=== PATIENT | male | born 1970 | race Caucasian/White ===

== ENCOUNTER 2017-07-26 17:53 | Emergency (ER) | payer BC ==
[2017-07-26 20:24] LABS: Absolute Lymphocytes (CBC) 0.9 K/uL (0.7-4.9); Absolute Monocytes 0.4 K/uL (0.1-1.3); Absolute Neutrophil 7.6 K/uL (1.8-8.0); Basophils % 0.2 % (0-1.3); Eosinophils % 0.4 % (0-4.4); Hematocrit 43.9 % (39.6-49.0); Lymphocytes % 9.7 % (15.3-44.8); MCH 31.1 pg (27.0-35.0); MCV 92.5 fL (80-100); MPV 8.2 fL (7.6-11.3); Monocytes % 3.9 % (3.3-12.3); RBC Red Blood Cell Count 4.75 M/uL (4.33-5.43)
[2017-07-26] MEDS ORDERED: NA CHLORIDE 0.9% 1,000 ML ONE (20:37)
[2017-07-26 20:42] LABS: Albumin 4.7 g/dL (3.2-5.5); Bilirubin Direct 0.1 mg/dL (0-0.2); Bilirubin Total 0.6 mg/dL (0.3-1.2); Magnesium 1.9 mg/dL (1.8-2.5); Protein, Total 7.3 g/dL (6.0-8.3)
[2017-07-26 20:46] LABS: Urine Blood NEGATIVE (NEG); Urine Glucose NEGATIVE (NEG); Urine Protein NEGATIVE (NEG)
--- NOTE | 2017-07-26 21:02 | RAD REPORT ---
EXAM DESCRIPTION: Lauren Single View07/26/2017 8:35 pm CLINICAL HISTORY: Chest pain COMPARISON: none FINDINGS: The lungs appear clear of acute infiltrate. The heart is normal size IMPRESSION: No acute abnormalities displayed
[2017-07-26 21:15] LABS: Blood Morphology Comment NOT SEEN (NOT SEEN); Platelet Estimate ADEQ; Urine White Blood Cell Casts OK
--- NOTE | 2017-07-26 21:24 | EDPHYS ---
Physician Documentation [facility] Name: Kaiden Bishop Age: 47 yrs Sex: Male : 1970 Arrival Date: 07/26/2017 Time: 17:57 Bed 18 Private MD: Kristen Aldrich H ED Physician Adams Juarez HPI: 07/26 21:19 This 47 yrs old Male presents to ER via Ambulatory with complaints of Near gs Syncope. 21:19 The patient has experienced near-syncope, almost passed out, felt generally weak. gs Onset: The symptoms/episode began/occurred acutely, today. Duration: The patient has had multiple episodes, that last 5 minute(s). Context: the episode(s) was witnessed, by a significant other, occurred at home, occurred while the patient was sitting, Just prior to the episode the patient experienced diaphoresis, dizziness, palpitations. Associated injury: The patient did not suffer any apparent associated injury. Associated signs and symptoms: Pertinent negatives: abdominal pain, chest pain, confusion. The patient has experienced similar episodes in the past, a few times. The patient has not recently seen a physician. Historical: - Allergies: 18:06 No Known Allergies; hj - Home Meds: 18:06 None [Active]; hj - PMHx: 18:06 None; hj - PSHx: 18:06 None; hj - Immunization history:: Adult Immunizations unknown. - Social history:: The patient lives at home, Smoking status: Patient/guardian denies using tobacco. ROS: 21:19 Cardiovascular: Negative for chest pain. gs 21:19 Respiratory: Negative for orthopnea, pleurisy, shortness of breath. 21:19 All other systems are negative. Exam: 21:19 Head/Face: Normocephalic, atraumatic. Eyes: Pupils equal round and reactive to light, gs extra-ocular motions intact. Lids and lashes normal. Conjunctiva and sclera are non-icteric and not injected. Cornea within normal limits. Periorbital areas with no swelling, redness, or edema. ENT: Nares patent. No nasal discharge, no septal abnormalities noted. Tympanic membranes are normal and external auditory canals are clear. Oropharynx with no redness, swelling, or masses, exudates, or evidence of obstruction, uvula midline. Mucous membranes moist. Neck: Trachea midline, no thyromegaly or masses palpated, and no cervical lymphadenopathy. Supple, full range of motion without nuchal rigidity, or vertebral point tenderness. No Meningismus. Chest/axilla: Normal chest wall appearance and motion. Nontender with no deformity. No lesions are appreciated. Cardiovascular: Regular rate and rhythm with a normal S1 and S2. No gallops, murmurs, or rubs. Normal PMI, no JVD. No pulse deficits. Respiratory: Lungs have equal breath sounds bilaterally, clear to auscultation and percussion. No rales, rhonchi or wheezes noted. No increased work of breathing, no retractions or nasal flaring. Abdomen/GI: Soft, non-tender, with normal bowel sounds. No distension or tympany. No guarding or rebound. No evidence of tenderness throughout. Back: No spinal tenderness. No costovertebral tenderness. Full range of motion. Skin: Warm, dry with normal turgor. Normal color with no rashes, no lesions, and no evidence of cellulitis. MS/ Extremity: Pulses equal, no cyanosis. Neurovascular intact. Full, normal range of motion. Neuro: Awake and alert, GCS 15, oriented to person, place, time, and situation. Cranial nerves II-XII grossly intact. Motor strength 5/5 in all extremities. Sensory grossly intact. Cerebellar exam normal. Normal gait. 21:19 Constitutional: The patient appears in no acute distress, alert, awake. 21:19 ECG was reviewed by the Attending Physician. Vital Signs: 18:06 BP 139 / 93; Pulse 75; Resp 18; Temp 98.8(TE); Pulse Ox 99% on R/A; Weight 65.77 kg; hj Height 6 ft. 2 in. (187.96 cm); Pain 0/10; 18:06 Body Mass Index 18.62 (65.77 kg, 187.96 cm) hj MDM: 19:24 Patient medically screened. 21:19 Differential Diagnosis: cardiac arrhythmia, idiopathic syncope, vasovagal episode. Data gs reviewed: vital signs, nurses notes. Response to treatment: the patient's symptoms have markedly improved after treatment, and as a result, I will discharge patient. 21:23 Counseling: I had a detailed discussion with the patient and/or guardian regarding: the gs presence of at least one elevated blood pressure reading (>120/80) during this emergency department visit. Special discussion: I have referred the patient to see his PCP for further evaluation of high blood pressure. 07/26 19:27 Order name: Basic Metabolic Panel; Complete Time: 21: 07/26 19:27 Order name: CBC with Diff; Complete Time: 21: gs 07/26 19:27 Order name: LFT's; Complete Time: 21: 07/26 19:27 Order name: Magnesium; Complete Time: 21: 07/26 20:30 Order name: CBC Smear Scan; Complete Time: 21:23 EDMS 07/26 20:33 Order name: Urine Dipstick--Ancillary (enter results); Complete Time: 21: rg2 07/26 19:27 Order name: XRAY Chest (1 view); Complete Time: 21: 07/26 19:27 Order name: EKG; Complete Time: 19:27 07/26 19:27 Order name: Cardiac monitoring; Complete Time: 20:18 07/26 19:27 Order name: EKG - Nurse/Tech; Complete Time: 20:18 07/26 19:27 Order name: IV Saline Lock; Complete Time: 20:18 07/26 19:27 Order name: Labs collected and sent; Complete Time: 20:18 07/26 19:27 Order name: O2 Per Protocol; Complete Time: 20:18 07/26 19:27 Order name: O2 Sat Monitoring; Complete Time: 20:18 07/26 19:27 Order name: Urine Dipstick-Ancillary (obtain specimen); Complete Time: 20:18 gs EC:19 Rate is 64 beats/min. Rhythm is regular. DE interval is normal. QRS interval is normal. gs QT interval is normal. T waves are Normal. No ST changes noted. Clinical impression: Abnormal EKG without significant change. Interpreted by me. Administered Medications: 20:19 Drug: NS 0.9% 1000 ml Route: IV; Rate: 1 bolus; Site: right antecubital; 22:14 Follow up: Response: No adverse reaction; IV Status: Completed infusion Disposition: 07/26/17 21:23 Discharged to Home. Impression: Syncope and collapse. - Condition is Stable. - Discharge Instructions: Near-Syncope, Syncope, Managing Your High Blood Pressure. - Medication Reconciliation Form, Thank You Letter, Antibiotic Education, Prescription Opioid Use form. - Follow up: Kristen Aldrich DO; When: 1 - 2 days; Reason: Re-evaluation by your physician. Follow up: Akin Alvarado MD; When: 2 - 3 days; Reason: Re-evaluation by your physician. Signatures: Dispatcher [employer] Vincent Mckeon RN RN hj Habalo, Winsy Adams Juarez MD MD
--- NOTE | 2017-07-26 21:24 | ER ---
Nurse's Notes [facility] Name: Kaiden Bishop Age: 47 yrs Sex: Male : 1970 Arrival Date: 07/26/2017 Time: 17:57 Bed 18 Private MD: Kristen Aldrich H Diagnosis: Syncope and collapse Presentation: 07/26 18:04 Presenting complaint: Patient states: earlier i had pulled a muscle on my neck area; so hj i have shoulder pain; took 2 motrin; i laid down and felt better, i got up and i feel like about to passed out; reports sweats; BG- 103; denies nausea/ vomiting;. Transition of care: patient was not received from another setting of care. Onset of symptoms was July 26, 2017. Care prior to arrival: None. 18:04 Method Of Arrival: Ambulatory 18:04 Acuity: TREVOR 3 hj Triage Assessment: 18:06 General: Appears in no apparent distress. uncomfortable, Behavior is calm, cooperative, hj appropriate for age. Pain: Denies pain. Historical: - Allergies: 18:06 No Known Allergies; hj - Home Meds: 18:06 None [Active]; hj - PMHx: 18:06 None; hj - PSHx: 18:06 None; hj - Immunization history:: Adult Immunizations unknown. - Social history:: The patient lives at home, Smoking status: Patient/guardian denies using tobacco. Screenin:15 Abuse screen: Denies threats or abuse. Denies injuries from another. Nutritional wh screening: No deficits noted. Tuberculosis screening: No symptoms or risk factors identified. Fall Risk None identified. Assessment: 20:04 General: Appears in no apparent distress. comfortable, Behavior is calm, cooperative, wh appropriate for age. Pain: Denies pain. Neuro: Level of Consciousness is awake, alert, obeys commands, Oriented to person, place, time, situation, Reports dizziness, and near syncopal episode that happened 3x in the past few days. Cardiovascular: Denies chest pain, Heart tones S1 S2 Capillary refill < 3 seconds. Respiratory: Airway is patent Respiratory effort is even, unlabored, Respiratory pattern is regular, symmetrical, Breath sounds are clear bilaterally. GI: Abdomen is flat, non-distended, Abd is soft and non tender X 4 quads. : No signs and/or symptoms were reported regarding the genitourinary system. EENT: No signs and/or symptoms were reported regarding the EENT system. Derm: Skin is intact, is healthy with good turgor, Skin is pink, warm \T\ dry. normal. Musculoskeletal: Range of motion: intact in all extremities. 21:10 Reassessment: Patient appears in no apparent distress at this time. Patient and/or wh family updated on plan of care and expected duration. Pain level reassessed. Patient is alert, oriented x 3, equal unlabored respirations, skin warm/dry/pink. Patient denies pain at this time. 22:12 Reassessment: Patient appears in no apparent distress at this time. Patient and/or wh family updated on plan of care and expected duration. Pain level reassessed. Patient is alert, oriented x 3, equal unlabored respirations, skin warm/dry/pink. Patient denies pain at this time. Vital Signs: 18:06 BP 139 / 93; Pulse 75; Resp 18; Temp 98.8(TE); Pulse Ox 99% on R/A; Weight 65.77 kg; hj Height 6 ft. 2 in. (187.96 cm); Pain 0/10; 18:06 Body Mass Index 18.62 (65.77 kg, 187.96 cm) ED Course: 17:57 Patient arrived in ED. rg4 17:57 Kristen Aldrich DO is Private Physician. rg4 18:06 Triage completed. 18:06 Arm band placed on right wrist. 19:08 Marcelina Myers is Primary Nurse. 19:15 Adams Juarez MD is Attending Physician. 20:19 Inserted saline lock: 20 gauge in right antecubital area, using aseptic technique. Blood collected. 20:29 X-ray completed. Portable x-ray completed in exam room. Patient tolerated procedure kc2 well. 20:29 XRAY Chest (1 view) In Process Unspecified. EDMS 21:14 Patient has correct armband on for positive identification. Bed in low position. Call light in reach. Side rails up X 1. cardiac monitor technician on. Pulse ox on. NIBP on. 21:22 Kristen Aldrich DO is Referral Physician. 21:23 Akin Alvarado MD is Referral Physician. gs 22:12 No provider procedures requiring assistance completed. IV discontinued, intact, bleeding controlled, No redness/swelling at site. Administered Medications: 20:19 Drug: NS 0.9% 1000 ml Route: IV; Rate: 1 bolus; Site: right antecubital; 22:14 Follow up: Response: No adverse reaction; IV Status: Completed infusion Outcome: 21:23 Discharge ordered by MD. 22:13 Discharged to home ambulatory, with family. 22:13 Condition: good 22:13 Discharge instructions given to patient, family, Instructed on discharge instructions, follow up and referral plans. POC Demonstrated understanding of instructions, follow-up care. 22:17 Patient left the ED. Signatures: Dispatcher [employer] EDMS Vincent Joseph RN RN hj Carr, Kelsie kc2 Chaparrita Durant4 Marcelina Myers Adams Juarez MD MD Corrections: (The following items were deleted from the chart) 18:08 18:06 Pulse 75bpm; Resp 18bpm; Pulse Ox 99% RA; Temp 98.8F Temporal; 65.77 kg; Height 6 hj ft. 2 in.; BMI: 18.6; Pain 0/10; hj
--- NOTE | 2017-07-27 05:07 | EKG ---
Test Date: 2017-07-26 Test Time: 20:04:20 Digitizer Operator: DANIKA MEASUREMENT RESULTS: Intervals: Rate: 64 RI: 122 QRSD: 92 QT: 370 QTc: 381 [place]: P: 70 RI: 122 QRS: 87 T: 63 INTERPRETIVE STATEMENTS: Normal sinus rhythm Minimal voltage criteria for LVH, may be normal variant Borderline ECG No previous ECG available for comparison Electronically Signed On 07-27-17 05:06:38 CDT by Akin Alvarado
--- NOTE | 2017-07-27 16:29 | EKG ---
Test Date: 2017-07-26 Test Time: 20:04:50 Application Security Engineer: DANIKA MEASUREMENT RESULTS: Intervals: Rate: 64 MT: 126 QRSD: 92 QT: 364 QTc: 375 [place]: P: 69 MT: 126 QRS: 88 T: 66 INTERPRETIVE STATEMENTS: Normal sinus rhythm Minimal voltage criteria for LVH, may be normal variant Borderline ECG Compared to ECG 07/26/2017 20:04:20 No significant changes Electronically Signed On 07-27-17 16:25:17 CDT by Akshat Castaneda
== END 2017-07-26 22:17 | disposition home or self-care (01) ==
LOC: ER 17:53
DX: R55 Syncope and collapse (principal)
CPT/HCPCS: 36415; 71045; 80048; 80076; 81003; 83735; 85025; 93005; 96360; 96361; 99284; J7030

== ENCOUNTER 2023-10-26 11:45 | Emergency (ER) | payer OTHER, SELFPAY ==
--- OUTSIDE RECORDS SUMMARY | 2023-10-26 12:22 | XMS REPORT | Continuity of Care Document ---
Author Name Unknown Address [address] [place] [address] [address] [place], [place] [id number] [place] [address] thconnect Address [address] [facility] [address] [place] [address] Care Team Providers Care Emergency Room Physician Assistant Name Role Phone PCP, PATIENT DOES NOT HAVE A Primary Care Physic WERNER Noland Attending Clinician Unavailable Payers Payer Name Policy Type Policy Number Effective Date Expirati on Date Source [facility] [id number] 2014 00:00:00 Allergies, Adverse Reactions, Alerts Allergy Name Allergy Type Status Severity Reaction(s) Onset Date Inactive Date Treating Clinician Comments Source NO KNOWN ALLERGIE S Drug Class Active [facility] Encounters Start Date/Time End Date/Time Encounter Type Admission Type Attending Clinicians Care Facility Care Department Encounter ID Source 2019-06-17 12:40:00 2019-06-17 23:59:00 Outpatient WERNER DUNHAM [facility] [id number] [facility]
--- NOTE | 2023-10-26 13:26 | RAD REPORT ---
EXAM DESCRIPTION: CT - C Spine Wo Con - 10/26/2023 12:22 pm CLINICAL HISTORY: Pain COMPARISON: None. TECHNIQUE: Axial noncontrast thin cut CT images of the cervical spine were obtained with sagittal an d coronal reconstruction images generated and reviewed. All CT scans are performed using dose optimization technique as appropriate and may include automated exposure control or mA/KV adjustment according to patient size. FINDINGS: Cervical body height and alignment are normal. Straightening of normal cervical lordosis w hich may be positional or secondary to muscle spasm. Mild degenerative changes most notably at C6-7, contributing to mild neural foraminal narrowing on the left. No disk space narrowing. No fracture or acute bony abnormality. No paraspinal mass or hematoma. IMPRESSION: No acute findings. Mild degenerative changes as above.
--- NOTE | 2023-10-26 14:31 | EDPHYS ---
Physician Documentation [facility] Name: Kaiden Bishop Age: 53 yrs Sex: Male : 1970 Arrival Date: 10/26/2023 Time: 11:45 Bed DX1 Private MD: ED Physician Darci Lai HPI: 10/25 16:27 This 53 yrs old Male presents to ER via Ambulatory with complaints of Head Injury-Adult.ms3 16:27 53-year-old male with no past medical history presents to the emergency department for ms3 neck pain. Patient states last week he was walking and hit a pole with his head. Patient notes he did have a hard hat on and did not have loss of consciousness. Patient states today while in a meeting he was pushing on his spine and felt a tender area in the midline spine that caused immense pain. Patient states the pain has subsided since that time.. Historical: - Allergies: 11:52 No Known Allergies; mb9 - Home Meds: 11:52 None [Active]; mb9 - PMHx: 11:52 None; mb9 - PSHx: 11:52 None; mb9 - Immunization history:: Adult Immunizations up to date. - Infectious Disease History:: Denies. - Social history:: Smoking status: Patient denies any tobacco usage or history of. ROS: 16:27 Constitutional: Negative for fever, and chills. Neck: Negative for injury, pain, and ms3 swelling, Cardiovascular: Negative for chest pain, and palpitations. Respiratory: Negative for shortness of breath, cough, wheezing, and pleuritic chest pain, Abdomen/GI: Negative for abdominal pain, nausea, vomiting, diarrhea, and constipation, 16:27 MS/extremity: Positive for Neck pain, Exam: 16:27 Constitutional: This is a well developed, well nourished patient who is awake, alert, ms3 and in no acute distress. Head/Face: Normocephalic, atraumatic. Neck: Trachea midline, no cervical lymphadenopathy. Supple, full range of motion without nuchal rigidity, or vertebral point tenderness. No Meningismus. Chest/axilla: Normal chest wall appearance and motion. Nontender with no deformity. Cardiovascular: Regular rate and rhythm with a normal S1 and S2. No gallops, murmurs, or rubs. Normal PMI, no JVD. No pulse deficits. Respiratory: Lungs have equal breath sounds bilaterally, clear to auscultation and percussion. No rales, rhonchi or wheezes noted. No increased work of breathing, no retractions or nasal flaring. Abdomen/GI: Soft, non-tender, with normal bowel sounds. No distension or tympany. No guarding or rebound. No evidence of tenderness throughout. Skin: Warm, dry with normal turgor. Normal color with no rashes, no lesions, and no evidence of cellulitis. Vital Signs: 11:51 BP 154 / 99; Pulse 63; Resp 18; Temp 98.2; Pulse Ox 100% on R/A; Weight 72.57 kg; mb9 Height 6 ft. 2 in. ; Pain 0/10; 14:40 BP 147 / 82; Pulse 66; Resp 18; Pulse Ox 97% ; as6 11:51 Body Mass Index 20.54 (72.57 kg, 187.96 cm) mb9 11:51 Pain Scale: Adult mb9 [place] Coma Score: 11:51 Eye Response: spontaneous(4). Motor Response: obeys commands(6). Verbal Response: mb9 oriented(5). Total: 15. MDM: 12:09 Patient medically screened. ms3 16:27 Differential diagnosis: Contusion of Muscle spasm versus vertebral. Data reviewed: ms3 vital signs, nurses notes, and as a result, I will discharge patient. Counseling: I had a detailed discussion with the patient and/or guardian regarding the historical points, exam findings, and any diagnostic results supporting the discharge/admit diagnosis, radiology results, the need for outpatient follow up, to return to the emergency department if symptoms worsen or persist or if there are any questions or concerns that arise at home. Special discussion: I discussed with the patient/guardian in detail that at this point there is no indication for admission to the hospital. It is understood, however, that if the symptoms persist or worsen the patient needs to return immediately for re-evaluation. ED course: Discussed negative CT C-spine with patient. Patient to follow-up with her primary care physician in 2 to 3 days. Patient understands and agrees with plan. All questions were answered. Return precautions discussed include worsening symptoms, or any other concerns. On reevaluation patient is alert and oriented x 4, no apparent distress, nontoxic-appearing, speaking full sentences. 10/25 12:10 Order name: CT C Spine; Complete Time: 13:47 ms3 Administered Medications: No medications were administered Disposition Summary: 10/26/23 14:30 Discharge Ordered Notes: Location: Home ms3 Condition: Stable ms3 Diagnosis - Neck pain ms3 Followup: ms3 - With: Joel Raya DO - When: 2 - 3 days - Reason: Recheck today's complaints Discharge Instructions: - Discharge Summary Sheet ms3 - Neck Exercises ms3 Forms: - Work release form ms3 - Medication Reconciliation Form ms3 - Antibiotic Education ms3 - Prescription Opioid Use ms3 - Patient Portal Instructions ms3 - Leadership Thank You Letter ms3 Prescriptions: - Cyclobenzaprine 10 mg Oral Tablet - take 1 tablet ORAL route every 8 hours As needed; 30 tablet; Refills: 0, ms3 Product Selection Permitted Signatures: Dispatcher [employer] Darci Erwin DO DO ms3 Ashlee Rouse RN RN mb9
--- NOTE | 2023-10-26 14:31 | ER ---
Nurse's Notes [facility] Name: Kaiden Bishop Age: 53 yrs Sex: Male : 1970 Arrival Date: 10/26/2023 Time: 11:45 Bed DX1 Private MD: Diagnosis: Neck pain Presentation: 10/25 11:51 Chief complaint: Patient states: "1 week ago, I walked into a pole. I was wearing a mb9 helmet. My muscles and neck are sore. Yesterday, I woke up with neck pain and tenderness to touch near my spine.". Coronavirus screen: Vaccine status: Patient reports receiving the 2nd dose of the covid vaccine. Ebola Screen: No symptoms or risks identified at this time. Mechanism of Injury: resulted from standing up, and hitting pipe. Initial Sepsis Screen: Does the patient meet any 2 criteria? No. Patient's initial sepsis screen is negative. Does the patient have a suspected source of infection? No. Patient's initial sepsis screen is negative. Risk Assessment: Do you want to hurt yourself or someone else? Patient reports no desire to harm self or others. Onset of symptoms was 2023. 11:51 Acuity: TREVOR 3 mb9 11:51 Method Of Arrival: Ambulatory 9 Triage Assessment: 11:53 General: Appears in no apparent distress. Behavior is calm, cooperative. Pain: mb9 Complains of pain in neck. EENT: No signs and/or symptoms were reported regarding the EENT system. Neuro: Contreras Agitation-Sedation Scale (RASS): 0 - Alert and Calm Level of Consciousness is awake, alert, obeys commands, Oriented to person, place, time, situation, Appropriate for age Reports dizziness. Cardiovascular: Patient's skin is warm and dry. Respiratory: Airway is patent Respiratory effort is even, unlabored, Respiratory pattern is regular, symmetrical. GI: No signs and/or symptoms were reported involving the gastrointestinal system. : No signs and/or symptoms were reported regarding the genitourinary system. Derm: Skin is pink, warm \\T\\ dry. Musculoskeletal: Range of motion: intact in all extremities. Historical: - Allergies: 11:52 No Known Allergies; mb9 - Home Meds: 11:52 None [Active]; mb9 - PMHx: 11:52 None; mb9 - PSHx: 11:52 None; mb9 - Immunization history:: Adult Immunizations up to date. - Infectious Disease History:: Denies. - Social history:: Smoking status: Patient denies any tobacco usage or history of. Screenin:26 [facility] ED Fall Risk Assessment (Adult) History of falling in the last 3 months, as6 including since admission Yes- single mechanical fall (1 pt) Confusion or Disorientation No (0 pts) Intoxicated or Sedated No (0 pts) Impaired Gait No (0 pts) Mobility Assist Device Used No (0 pt) Altered Elimination No (0 pt) Score/Fall Risk Level 0 - 2 = Low Risk Oriented to surroundings, Maintained a safe environment, Educated pt \\T\\ family on fall prevention, incl call for assistance when getting out of bed, Assessed \\T\\ reinforced patient's understanding of fall precautions. Abuse screen: Denies threats or abuse. Denies injuries from another. Nutritional screening: No deficits noted. Tuberculosis screening: No symptoms or risk factors identified. Assessment: 14:39 Reassessment: Patient appears in no apparent distress at this time. Patient and/or as6 family updated on plan of care and expected duration. Pain level reassessed. Patient is alert, oriented x 3, equal unlabored respirations, skin warm/dry/pink. Vital Signs: 11:51 BP 154 / 99; Pulse 63; Resp 18; Temp 98.2; Pulse Ox 100% on R/A; Weight 72.57 kg; mb9 Height 6 ft. 2 in. ; Pain 0/10; 14:40 BP 147 / 82; Pulse 66; Resp 18; Pulse Ox 97% ; as6 11:51 Body Mass Index 20.54 (72.57 kg, 187.96 cm) mb9 11:51 Pain Scale: Adult mb9 Edwar Coma Score: 11:51 Eye Response: spontaneous(4). Motor Response: obeys commands(6). Verbal Response: mb9 oriented(5). Total: 15. ED Course: 11:49 Patient arrived in ED. rg4 11:50 Darci Lai DO is Attending Physician. ms3 11:52 Triage completed. mb9 11:53 Arm band placed on. mb9 12:19 CT C Spine In Process Unspecified. EDMS 14:26 Bed in low position. Call light in reach. as6 14:29 Joel Raya DO is Referral Physician. ms3 14:40 Provided Education on: follow up. as6 14:40 No provider procedures requiring assistance completed. Patient did not have IV access as6 during this emergency room visit. Administered Medications: No medications were administered Medication: 14:26 VIS not applicable for this client. as6 Outcome: 14:30 Discharge ordered by MD. ms3 14:40 Discharged to home ambulatory, with family, as6 14:40 Condition: stable 14:40 Discharge instructions given to patient, Instructed on discharge instructions, follow up and referral plans. medication usage, Demonstrated understanding of instructions, follow-up care, medications, Prescriptions given X 1, 14:40 Patient left the ED. as6 Signatures: Dispatcher [employer] EDMS Chaparrita Durant 4 Darci Lai DO DO ms3 Cedric Freitas, RN RN as6 Ashlee Rouse, RN RN mb9
[2023-10-26 15:01] VITALS: BP 147/82; TEMP 98.2; O2SAT 97
== END 2023-10-26 14:40 | disposition home or self-care (01) ==
LOC: ER 11:45
DX: M54.2 Cervicalgia (principal)
CPT/HCPCS: 72125